=== PATIENT | female | born 1980 | race Caucasian/White ===

== ENCOUNTER → 2018-06-17 15:41 | Outpatient (CLI) | payer OTHER, MEDICAID, SELFPAY ==
--- NOTE | 2018-06-17 | DI.MRI.S_ITS ---
PROCEDURE: MR HEAD/BRAIN WO/W CON INDICATIONS: Parosmia TECHNIQUE: Noncontrast axial T1 spin echo, axial T2 fast spin echo, sagittal and axial FLAIR, coronal T2 fast spin echo, axial gradient echo, axial diffusion and ADC through the brain. After the administration of contrast, axial and coronal 3D VIBE or T1 spin echo with fat saturation through the brain. COMPARISON: None. FINDINGS: Image quality: Excellent. CSF Spaces: Basal cisterns are patent. No extra-axial fluid collections. Ventricles are normal in size and shape. Brain: No midline shift. No intracranial bleeds or masses. No abnormal intracranial enhancement. The brainstem appears normal. Diffusion-weighted images demonstrate no acute ischemic insults. No chronic ischemic insults. No GRE weighted abnormalities identified in the brain parenchyma. Normal intravascular flow voids are present. Pituitary gland is normal size and contour. No sellar or suprasellar masses identified. Skull and face: Calvarial marrow is normal in signal. Orbits appear normal. Sinuses: Sinuses and mastoids appear clear. IMPRESSION: 1. No intracranial disease process. 2. No abnormal intracranial signal or suspicious postcontrast enhancement. 3. No abnormal intracranial mass. Dictated by: Jes Alas MD, PhD on 06/17/2018 at 16:46 Approved by: Jes Alas MD, PhD on 06/17/2018 at 16:50
== END ==
PROVIDERS: PCP Family Medicine; Visit Provider Otolaryngology
DX: R43.1 Parosmia (principal)
CPT/HCPCS: 70553; A9579

== ENCOUNTER → 2024-04-08 13:38 | Outpatient (CLI) | payer OTHER, MEDICAID, SELFPAY ==
--- NOTE | 2024-04-08 13:42 | DI.RAD.S_ITS ---
PROCEDURE: XR CERVICAL SPINE 4V OR 5V INDICATIONS: Unspecified mononeuropathy of right upper limb TECHNIQUE: 5 views of the cervical spine acquired. COMPARISON: None. FINDINGS: Bones: No fractures or dislocations to the C7-T1 level. Straightening of the normal cervical lordosis. Multilevel degenerative changes of the cervical spine with disc height loss, degenerative endplate changes and spurring, facet and uncovertebral arthropathy. This is most severe at C5-C6. Oblique images demonstrate mild to moderate bony foraminal stenoses. Soft tissues: No prevertebral soft tissue swelling. IMPRESSION: Degenerative changes of the cervical spine, most pronounced at C5-C6. Dictated by: Naif Bose M.D. on 04/08/2024 at 16:53 Approved by: Naif Bose M.D. on 04/08/2024 at 16:54
== END ==
PROVIDERS: PCP Family Medicine; Referring Provider Family Medicine; Visit Provider Family Medicine
DX: G56.91 Unspecified mononeuropathy of right upper limb (principal); M47.812 Spondylosis without myelopathy or radiculopathy, cervical region
CPT/HCPCS: 72050

== ENCOUNTER → 2024-11-08 08:36 | Outpatient (CLI) | payer OTHER, SELFPAY ==
--- NOTE | 2024-11-08 08:37 | DI.MG.S_ITS ---
MM screening mammo BI: 11/08/2024. BI-RADS: 1 CLINICAL: 44-year old female for bilateral screening mammogram. Tyrer-Cuzick lifetime risk of 6.3%. No personal or first-degree family history of breast cancer. PRIOR EXAMS No prior examinations available. MAMMOGRAPHY TECHNIQUE: 2D and 3D (tomosynthesis) digital mammographic views obtained, with additional images as needed for full coverage. Current study was also evaluated with a Computer Aided Detection (CAD) system. DENSITY C. The breasts are heterogeneously dense, which may obscure small masses. MAMMOGRAPHY FINDINGS Bilateral: No suspicious mass, asymmetry, microcalcification, or other abnormality seen. IMPRESSION: * No evidence of malignancy. RECOMMENDATIONS Bilateral * Annual screening mammography. OVERALL ASSESSMENT CATEGORY BI-RADS-1: Negative. The [employer] recommends annual screening mammography beginning at age 40 for women with average risk of breast cancer. ELECTRONICALLY SIGNED: Eric Torres M.D. on 11/08/2024 at 05:29:34 PM PT Interpreting Station ID: [id number]
--- NOTE | 2024-11-08 08:38 | DI.US.S_ITS ---
PROCEDURE: US SOFT TISSUE ABDOMEN INDICATIONS: SWELLING LLE/PALPABLE ABD MASS TECHNIQUE: Real-time focused scanning was performed of the abdomen, with image documentation. COMPARISON: None. FINDINGS: There is a lentiform area in the subcutaneous tissues, extending obliquely from the underside of the skin surface towards the abdominal wall muscle fascia. There is no underlying fascial defect. This crescentic area measures about 2.1 x 0.7 x 0.9 cm and demonstrates peripheral vascularity. A discrete connection through the skin surface cannot be seen. There is an indistinct, minimal echogenic halo. IMPRESSION: Small hypoechoic, possibly inflamed finding in the subcutaneous tissue without definite extension through the skin surface to suggest sebaceous cyst, and no defect in the underlying fascia suggest hernia. Adjacent vascularity may indicate a prior injury, infection cannot be excluded. A subcutaneous injection granuloma may have this appearance. If further imaging is needed, a limited, soft tissue MRI may be helpful. Dictated by: Laurel Corrigan M.D. on 11/08/2024 at 18:46 Approved by: Laurel Corrigan M.D. on 11/08/2024 at 18:52
== END ==
PROVIDERS: PCP Family Medicine; Referring Provider Family Medicine; Visit Provider Family Medicine
DX: Z12.31 Encounter for screening mammogram for malignant neoplasm of breast (principal); R19.00 Intra-abdominal and pelvic swelling, mass and lump, unspecified site; M79.89 Other specified soft tissue disorders
CPT/HCPCS: 76705; 77063; 77067

== ENCOUNTER → 2024-11-08 08:38 | Outpatient (CLI) | payer OTHER, SELFPAY ==
--- NOTE | 2024-11-08 08:39 | DI.CT.S_ITS ---
PROCEDURE: CT CERVICAL SPINE WO CON INDICATIONS: CERVICAL SPONDYLOSIS TECHNIQUE: Noncontrast 3 mm thick sections acquired from the skull base to the T4 level. Sagittal and coronal reformats were then constructed. For radiation dose reduction, the following was used: automated exposure control, adjustment of mA and/or kV according to patient size. COMPARISON: [facility], MR, MR CERVICAL SPINE WO CON, 06/06/2024, 10:10. [facility], CR, XR CERVICAL SPINE 4V OR 5V, 04/08/2024, 12:53. FINDINGS: Image quality: Excellent. Bones: No fractures or dislocations. Visualized superior ribs are intact. There is moderate disc space narrowing seen at C4-C5 and C5-C6 and C6-C7. Endplate irregularity and sclerosis can be seen, which is worst at C5-C6. Posteriorly directed endplate osteophytes can be seen at C4-C5 and C5-C6. Vacuum disc phenomenon is seen at C4-C5 and C5-C6. At C5-C6, there is disc osteophyte complex seen, with at least moderate bilateral neural foraminal narrowing and mild to moderate central canal narrowing. A few levels of facet arthropathy can be seen. Soft tissues: Prevertebral soft tissues are normal in thickness. No paravertebral hematomas. No apical pneumothoraces. IMPRESSION: Cervical spine degenerative changes are seen, which are overall worst at C5-C6. Dictated by: Apolinar Tvaares M.D. on 11/08/2024 at 9:22 Approved by: Apolinar Tavares M.D. on 11/08/2024 at 9:24
== END ==
LOC: CT 08:39
PROVIDERS: PCP Family Medicine; Referring Provider Neurological Surgery; Visit Provider Physician Assistant
DX: M47.812 Spondylosis without myelopathy or radiculopathy, cervical region (principal); M50.30 Other cervical disc degeneration, unspecified cervical region; Z12.31 Encounter for screening mammogram for malignant neoplasm of breast; R19.00 Intra-abdominal and pelvic swelling, mass and lump, unspecified site; M79.89 Other specified soft tissue disorders
CPT/HCPCS: 72125; 76705

== ENCOUNTER → 2025-05-20 09:57 | Outpatient (CLI) | payer OTHER, SELFPAY ==
--- NOTE | 2025-05-20 09:59 | DI.CT.S_ITS ---
PROCEDURE: CT CERVICAL SPINE WO CON INDICATIONS: presurgical planning TECHNIQUE: Noncontrast 3 mm thick sections acquired from the skull base to the T4 level. Sagittal and coronal reformats were then constructed. For radiation dose reduction, the following was used: automated exposure control, adjustment of mA and/or kV according to patient size. COMPARISON: [facility], CT, CT CERVICAL SPINE WO CON, 11/08/2024, 9:09. FINDINGS: Image quality: Excellent. Bones: No fractures or dislocations. Visualized superior ribs are intact. C2-C3: Moderate right greater than left facet arthropathy. Mild right and no left foraminal narrowing. C3-C4: Moderate left greater than right facet arthropathy with mild right and moderate left foraminal narrowing. C4-C5: Disc height loss and vacuum disc with endplate osteophytes similar to prior examination. Moderate right foraminal narrowing. C5-C6 moderate disc height loss, inflate osteophytes with moderate bilateral foraminal narrowing, unchanged. C6-C7: Mild degenerative disc disease. No foraminal narrowing. Soft tissues: Prevertebral soft tissues are normal in thickness. No paravertebral hematomas. No apical pneumothoraces. IMPRESSION: Stable multilevel degenerative change. Dictated by: Jozef Mann M.D. on 05/20/2025 at 10:26 Approved by: Jozef Mann M.D. on 05/20/2025 at 10:32
== END ==
LOC: CT 09:57
PROVIDERS: PCP Family Medicine; Visit Provider Nurse Practitioner Family
DX: M47.812 Spondylosis without myelopathy or radiculopathy, cervical region (principal)
CPT/HCPCS: 72125